=== PATIENT | male | born 1980 | race Caucasian/White ===

== ENCOUNTER 2016-05-14 23:47 | Emergency (ER) | payer SELFPAY ==
[~2016-05-14] VITALS: Ht 182.9 cm; Wt 83.2 kg
[2016-05-14 23:54] VITALS: BP 110/63
== END 2016-05-15 01:20 | disposition home or self-care (01) ==
LOC: ED 23:59
DX: F10.220 Alcohol dependence with intoxication, uncomplicated (principal); F17.200 Nicotine dependence, unspecified, uncomplicated
CPT/HCPCS: 99283